=== PATIENT | male | born 1985 | race Caucasian/White ===

== ENCOUNTER 2024-02-26 22:07 | Emergency (ER) | payer OTHER ==
[2024-02-26] MEDS ORDERED: Naloxone 0.4 MG/ML SDV IVPUSH PRN (23:39)
[2024-02-27] MEDS: Acetaminophen 500 MG Tab PO ONE (00:15)
[2024-02-27] MEDS: Ketorolac 60 MG/2 ML SDV IM ONE (00:16)
[2024-02-27] MEDS: Morphine 2 MG/ML SYRINGE IVPUSH ONE (00:25)
== END 2024-02-27 00:21 ==
LOC: MW.ED 22:07
DX: S00.03XA Contusion of scalp, initial encounter (principal); F17.210 Nicotine dependence, cigarettes, uncomplicated; Z88.0 Allergy status to penicillin; Z79.899 Other long term (current) drug therapy; Y04.8XXA Assault by other bodily force, initial encounter; Y92.149 Unspecified place in prison as the place of occurrence of the external cause
CPT/HCPCS: 70450; 71045; 72125; 73660; 96372; 99284; A9270; J1885